=== PATIENT | female | born 1985 | race Two or more races ===

== ENCOUNTER → 2019-07-18 | Outpatient (CLI) | payer SELFPAY | END | disposition home or self-care (01) | LOC: RAD 12:46 | PROVIDERS: ATTEND Neurological Surgery | DX: M41.85 Other forms of scoliosis, thoracolumbar region (principal); M51.26 Other intervertebral disc displacement, lumbar region; M43.06 Spondylolysis, lumbar region | CPT/HCPCS: 72082 ==